=== PATIENT | male | born 1955 | race Caucasian/White ===

== ENCOUNTER 2020-06-14 17:07 | Emergency (ER) | payer SELFPAY ==
[~2020-06-14] VITALS: Ht 165.1 cm; Wt 63.5 kg
--- NOTE | 2020-06-14 17:10 | NUR ---
Patient transferred to [facility] via wheelchair by tech. RN evaluating patient at bedside.
--- NOTE | 2020-06-14 17:12 | NUR ---
Dr. Cohn is evaluating the patient at bedside.
--- NOTE | 2020-06-14 17:13 | NUR ---
Called code brain.
[2020-06-14 17:14] VITALS: BP 137/89
--- NOTE | 2020-06-14 17:14 | NUR ---
BIB FAMILY FROM HOME C/O FACIAL DROOP, SLURRED SPEECH, L SIDE WEAKNESS, UNSTEADY GATE X 30 MINS AGO.
--- NOTE | 2020-06-14 17:14 | NUR ---
Patient taken to CT by
[2020-06-14] MEDS ORDERED: ALTEPLASE 100 MG IV ONE (17:25)
[2020-06-14] MEDS ORDERED: ALTEPLASE 100 MG VIAL IV ONE (17:35)
--- NOTE | 2020-06-14 17:55 | NUR ---
Carpenter 16F established, red-yellow tinge of 100mL output. Pt tolerated procedure well.
--- NOTE | 2020-06-14 18:00 | NUR ---
TPA pulled from [employer] and prepared for patient. Per Dr Cohn, hold on TPA. All medications given to Obstetrics And Gynecology Professor for return to pharmacy.
--- NOTE | 2020-06-14 18:01 | NUR ---
Established bilateral IV to AC 20G, good blood return.
[2020-06-14 18:06] LABS: BASOPHILS % (AUTO) 0.6 % (0.0-2.0); EOSINOPHILS # (AUTO) 0.2 K/uL (0-0.4); EOSINOPHILS % (AUTO) 3.2 % (0.0-4.0); HEMATOCRIT 43.6 % (36-52); HEMOGLOBIN 14.9 g/dL (12.0-18.0); LYMPHOCYTES # (AUTO) 3.2 K/uL (2.0-11.5); LYMPHOCYTES % (AUTO) 42.6 % (20.5-51.1); MEAN CORPUSCULAR HEMOGLOBIN 32 pg (27-31); MEAN CORPUSCULAR HGB CONC 34 g/dL (33-37); MEAN CORPUSCULAR VOLUME 92.3 fL (80-94); MONOCYTES # (AUTO) 0.6 K/uL (0.8-1.0); MONOCYTES % (AUTO) 8.2 % (1.7-9.3); NEUTROPHILS # (AUTO) 3.4 K/uL (1.8-7.7); NEUTROPHILS % (AUTO) 45.4 % (42.2-75.2); PLATELET COUNT (AUTO) 246 K/uL (140-450); RED BLOOD CELL COUNT(AUTO) 4.72 MIL/uL (4.20-6.10); RED CELL DISTRIBUTION WIDTH 13.2 % (11.6-13.7); WHITE BLOOD COUNT (AUTO) 7.6 K/uL (4.8-10.8)
--- NOTE | 2020-06-14 18:06 | NUR ---
Ateplase held by Dr. Greenwood. Report given by MARVEL Delacruz to [facility] for transfer to [facility].
--- NOTE | 2020-06-14 18:17 | NUR ---
Patient to be transferred to [facility]. Is being transferred due to Higher level of care. Receiving facility has accepting physician and available space. ER physician has signed transfer form. Patient or responsible constitution party has agreed to transfer and signed form. Patient belongings inventoried and will be sent with patient. Copy of nursing notes, lab reports, EKG, Physicians Orders and X-rays to be sent with patient. Report called to MARVEL Chery at receiving facility. [facility] ambulance service has been called for transfer.
[2020-06-14 18:18] VITALS: BP 137/89
[2020-06-14 18:55] LABS: PROTHROMBIN TIME 10.3 secs (10.8-13.4)
[2020-06-14 18:56] LABS: ALBUMIN 3.8 g/dL (3.4-5.0); ANION GAP 15.5 (8-16); CARBON DIOXIDE 25.9 mmol/L (21-32); CREATININE 1.1 mg/dL (0.6-1.3); POTASSIUM 3.4 mmol/L (3.5-5.1); TOTAL BILIRUBIN 0.3 mg/dL (0.0-1.0)
== END 2020-06-14 18:17 | disposition designated cancer center or children's hospital (05) ==
LOC: MED 17:07
DX: I63.9 Cerebral infarction, unspecified (principal); R47.01 Aphasia
CPT/HCPCS: 36415; 70450; 80053; 84484; 85025; 85610; 85730; 93005; 99285; J2997